=== PATIENT | male | born 1940 | race Caucasian/White ===

== ENCOUNTER 2017-03-06 16:41 | Inpatient (IN) | payer MEDICARE, BC ==
[2017-03-06] MEDS ORDERED: Ketorolac Tromethamine 30 MG/ML VIAL ONE (18:01)
--- NOTE | 2017-03-06 18:47 | HP ---
DATE OF ADMISSION: 03/06/2017 REQUESTING PHYSICIAN: Josh Jaime M.D. ATTENDING SURGEON: Nasir Monteiro M.D. CONSULTATIONS: None. HISTORY OF PRESENT ILLNESS: The patient is a 76-year-old man who last night had several d rinks of scotch over the evening while watching a baseball game and became intoxicated. Reports tri pping and falling and striking the right side of his chest on a coffee table and the patient was abl e to get back up into his recliner where he slept for the rest of night. This morning, he woke up w ith significant right-sided chest pain and took himself to the Emergency Department in [facility] he underwent evaluation and examination and was noted to have multiple right-sided rib fractures and right clavicle fracture. They sent the patient here for evaluation for admission and trauma ev aluation. ALLERGIES: None. CURRENT MEDICATIONS: Janumet, glipizide, Flomax, simvastatin, and lisinopril. PAST MEDICAL HISTORY: Diabetes, BPH, hypertension, and hyperlipidemia. PAST SURGICAL HISTORY: The patient had surgery to his left ankle and left knee. FAMILY MEDICAL HISTORY: Diabetes and hypertension. SOCIAL HISTORY: The patient lives at home alone. Denies drug or tobacco use and reports drinking a glass of scotch every night. PHYSICAL EXAMINATION: VITAL SIGNS: Blood pressure 161/102, heart rate 81, respirations 18, temperature is 100, oxygen sat uration is 95% on room air. GENERAL: The patient is resting comfortably in bed. He is alert and oriented x3. Ketan coma sca le is 15. HEENT: Head is normocephalic, atraumatic. Eyes: Extraocular motion intact. PERRLA bilaterally. Ears are atraumatic without discharge. Nose is atraumatic without discharge. Oropharynx is clear. NECK: Nontender. Trachea is midline. No JVD. CHEST: Clear to auscultation with moderate inspiratory and expiratory effort. Patient reports sign ificant pain in his right chest wall. HEART: Reveals regular rate and rhythm. ABDOMEN: Soft, flat, and nontender with active bowel sounds. Pelvis is stable. EXTREMITIES: Show full active range of motion. He has tenderness to palpation to the right clavicl e and a small contusion and deformity noted. The extremities are neurovascularly intact x4. BACK: Nontender and atraumatic. LABORATORY DATA AND IMAGING: Patient reportedly had lab work done in [place], but they cannot ob tain it, but by ER report, there was nothing significant other than \\\\"high glucose.\\\\" Radiographs again there are reports of the chest, abdomen, and pelvis that show right ribs 3 through 7, had a minimally displaced fracture of the right clavicle. ASSESSMENT AND PLAN: 1. Status post ground level fall. 2. Multiple right-sided rib fractures. 3. Right clavicle fracture. 4. Hyperglycemia. Plan was to admit patient to the surgical floor. We will repeat his labs and chest x-ray in the [facility]. IV fluid hydration, pain control via the oral pathway of the rib fracture protocol, pulmonary toilet, gastritis and mechanical DVT prophylaxis. Evaluation, examination, radiographic and labora tory findings were all discussed with Dr. Monteiro. At time of dictation, he will evaluate the patien t once he arrives up on the floor.
[2017-03-06] MEDS ORDERED: Ondansetron HCl/PF 4 MG/2 ML Vial IVP PRN (20:28)
[2017-03-06] MEDS ORDERED: hydrALAZINE 20 MG/ML VIAL SLOW IVP PRN (20:28)
[2017-03-06] MEDS ORDERED: Insulin Regular 300 UNITS/3 ML VIAL SC PRN (20:28)
[2017-03-06] MEDS ORDERED: Dextrose 5% in Water 1,000 ML IV PRN (20:28)
[2017-03-06] MEDS ORDERED: Dextrose 50% Abboject 50 ML SYRINGE SLOW IVP PRN (20:28)
[2017-03-06] MEDS ORDERED: Rib Fracture Protocol PO SCH (20:28)
[2017-03-06] MEDS ORDERED: Ondansetron ODT 4 MG TAB PO PRN (20:28)
[2017-03-06 20:32] VITALS: BMI 22.6
[2017-03-06] MEDS ORDERED: Cyclobenzaprine 10 MG TAB PO PRN (20:45)
[2017-03-06] MEDS: Sodium Chloride 0.9% 1,000 ML IV SCH (22:03)
[2017-03-06] MEDS: Famotidine 20 MG TAB PO SCH (22:04)
[2017-03-06] MEDS: Gabapentin 100 MG CAP PO SCH (22:04)
[2017-03-06] MEDS: Ibuprofen 600 MG TAB PO SCH (23:40)
[2017-03-06] MEDS: Acetaminophen 500 MG TAB PO SCH (23:40)
[2017-03-06] MEDS: traMADol HCl 50 MG TAB PO SCH (23:41)
[2017-03-07 05:23] LABS: #Eosinphils 0.1 thou/uL (0.0-0.7); #Lymphocytes 1.4 thou/uL (1.20-3.40); #Monocytes 0.7 thou/uL (0.11-0.59); #Neutrophils 4.2 thou/uL (1.40-6.50); %Basophils 0.4 % (0.0-1.0); %Eosinophils 1.3 % (0.0-10.0); %Lymphocytes 21.7 % (21.0-51.0); %Monocytes 11.5 % (0.0-10.0); Hematocrit 45.2 % (42.0-52.0); Mean Platelet Volume 8.7 fL (7.4-10.4); Red Blood Cell (RBC) Count 4.96 mill/uL (4.70-6.10); White Blood Cell (WBC) Count 6.5 thou/uL (4.8-10.8)
[2017-03-07 05:54] LABS: Anion Gap 9 mmol/L (10-20); BUN (Urea Nitrogen) 14 mg/dL (8.4-25.7); Calc. Creatinine Clearance 86 mL/min (70-130); Carbon Dioxide 25 mmol/L (23-31); Chloride 108 mmol/L (98-107); Estimated GFR-MDRD Greater than 90
[2017-03-07] MEDS: Ibuprofen 600 MG TAB PO SCH ×2 (06:17→12:07)
[2017-03-07] MEDS: traMADol HCl 50 MG TAB PO SCH ×2 (06:17→12:09)
[2017-03-07] MEDS: Acetaminophen 500 MG TAB PO SCH ×2 (06:17→12:07)
--- NOTE | 2017-03-07 07:58 | RAD ---
RIGHT CLAVICLE 2 VIEWS: Date: 03/07/17 HISTORY: Right clavicle fracture. FINDINGS/IMPRESSION: There is a fracture involving the shaft of the right clavicle with 4.0 cm overlapping of the fractur e fragments. A smaller fracture fragment is seen medial to the major distal fracture fragment. POS: [facility]
--- NOTE | 2017-03-07 08:42 | RAD ---
PORTABLE CHEST 1 VIEW: Date: 03/07/17 Time: 0726 hours HISTORY: Rib fractures, follow-up. FINDINGS/IMPRESSION: Comparison made with exam of 03/21/12. The heart size is normal. There is continued elevation of the right hemidiaphragm. There is blunting of the right costophrenic angle on the current exam suggestive of a small effusion. No lobar consol idation or pneumothoraces seen. There is a fracture involving the right clavicle. POS: [facility]
[2017-03-07] MEDS: Famotidine 20 MG TAB PO SCH (08:45)
[2017-03-07] MEDS: Gabapentin 100 MG CAP PO SCH (08:45)
--- OUTSIDE RECORDS SUMMARY | 2017-03-07 08:55 | XMS | Continuity of Care Document ---
:1940 Author Organization [facility] Care Team Providers Name Role Phone LISA SCHROEDER Primary Care Physician Insurance Providers Payer Name Policy Number Subscriber Name Relationship MEDICARE [id number] NATHAN GARCIA SELF/SAME PATIENT [facility] [id number] NATHAN GARCIA SELF/SAME PATIENT Advance Directives Directive Response Recorded Date/Time Advance Directive? N 03/06/17 8:56am Living Will? N 03/06/17 8:56am Health Care Proxy? N 03/06/17 8:56am Healthcare Power of Pneumatic Systems Operator? N 03/06/17 8:56am Is the patient an Organ Donor? N 03/06/17 8:56am Chief Complaint and Reason for Visit Reason for Visit FALL Problems No problem information available. Medications Current Home Medications Medication Dose Units Route Directions Days/Qty Instructions Start Date Glipizide 10 MG Oral TWO TABS (GLUCOTROL 10 MG TAB) 10 MG TAB Hydrocodone-Acetami 1 TAB Oral EVERY SIX HOURS 20 04/25/13 nophen (Racine) 10 MG/325 MG TAB Simvastatin 40 MG 40 MG Oral TAB Sitagliptin 50 MG Oral Phosphate (JANUVIA 50 MG TAB) 50 MG TAB Social History Problem Response Recorded Date Recreational drugs? N 03/06/17 Alcohol? Y 03/06/17 Query Response Start Date Stop Date Smoking Status: Never Smoker Hospital Discharge Instructions No hospital discharge instructions. Plan of Care Discharge Date 03/06/17 Disposition OTHER ACUTE CARE FACILITY Prescriptions See Medications Section Functional Status No functional status results. Allergies, Adverse Reactions, Alerts No known allergies. Immunizations No Known History of Immunizations. Vital Signs Vital Reading Collection Date/Time Result Blood Pressure 03/06/17 3:52pm 158/90 Blood Pressure Source 03/06/17 3:27pm Auto Cuff Temperature 03/06/17 3:52pm 98 F Temperature Source 03/06/17 3:27pm Oral Pulse Rate 03/06/17 3:52pm 90 Pulse Location 03/06/17 3:27pm Monitor Bedside Pulse Oximetry 03/06/17 3:52pm 93 Height 03/06/17 8:34am 5 ft 10 in Height 03/06/17 8:34am 177.8 cm Weight 03/06/17 8:34am 160 lb Weight 03/06/17 8:34am 72.575 kg Body Mass Index 03/06/17 8:34am 23.0 kg/m2 Results Laboratory Results Test Name Result Units Flags Reference Collection Result Comments Date/Time Date/Time White Blood Count 8.9 K/uL 4.8-10.8 03/06/17 03/06/17 1:50pm 2:15pm Red Blood Count 5.60 M/uL 4.70-6.00 03/06/17 03/06/17 1:50pm 2:15pm Hemoglobin 16.9 g/dL 13.5-17.5 03/06/17 03/06/17 1:50pm 2:15pm Hematocrit 48.2 % 42.0-52.0 03/06/17 03/06/17 1:50pm 2:15pm Mean Corpuscular 85.9 fl 80.0-100.0 03/06/17 03/06/17 Volume 1:50pm 2:15pm Mean Corpuscular 30.2 pg 27.0-31.0 03/06/17 03/06/17 Hemoglobin 1:50pm 2:15pm Mean Corpuscular 35.2 g/dL 32.0-36.0 03/06/17 03/06/17 Hgb Concent Diff 1:50pm 2:15pm Red Cell 13.5 % 11.5-14.5 03/06/17 03/06/17 Distribution Width 1:50pm 2:15pm Platelet Count 162 K/uL 130-400 03/06/17 03/06/17 1:50pm 2:15pm Mean Platelet 9.3 fl 03/06/17 03/06/17 Volume 1:50pm 2:15pm Granulocytes (%) 76.9 % H 50.0-75.0 03/06/17 03/06/17 1:50pm 2:15pm Lymphocytes % 12.3 % L 20.0-40.0 03/06/17 03/06/17 1:50pm 2:15pm Monocytes % 10.4 % 0.0-15.0 03/06/17 03/06/17 1:50pm 2:15pm Eosinophils % 0.1 % 0.0-10.0 03/06/17 03/06/17 1:50pm 2:15pm Basophils % 0.3 % 0.0-2.0 03/06/17 03/06/17 1:50pm 2:15pm Granulocytes # 6.8 K/uL H 1.8-6.4 03/06/17 03/06/17 1:50pm 2:15pm Lymphocytes # 1.1 K/uL L 1.2-3.6 03/06/17 03/06/17 1:50pm 2:15pm Monocytes # 0.9 K/uL 0.3-0.9 03/06/17 03/06/17 1:50pm 2:15pm Eosinophils # 0.0 K/ul 0.0-0.5 03/06/17 03/06/17 1:50pm 2:15pm Basophils # 0.0 K/uL 0.0-0.2 03/06/17 03/06/17 1:50pm 2:15pm Manual NO 03/06/17 03/06/17 Differential 1:50pm 2:15pm Sodium Level 136 mmol/L 135-144 03/06/17 03/06/17 1:50pm 2:27pm Potassium Level 4.1 mmol/L 3.5-5.1 03/06/17 03/06/17 1:50pm 2:27pm Chloride Level 103 mmol/L 101-111 03/06/17 03/06/17 1:50pm 2:27pm Carbon Dioxide 24 mmol/L 22-32 03/06/17 03/06/17 Level 1:50pm 2:27pm Anion Gap 13.1 mmol/L 10-03/06/17 03/06/17 1:50pm 2:27pm Glucose Level 141 mg/dL H 70-109 03/06/17 03/06/17 Random glucose > 200 mg/dL in a patient with typical 1:50pm 2:27pm symptoms of diabetes (polydipsia, polyuria and unexplained weight loss) satisfies ADA criteria for diabetes mellitus if confirmed by repeat testing on another day. Confirmation is unnecessary when acute metabolic decompensation with hyperglycemia is manifested. Reference: Report of the Expert Committee on the Diagnosis and Classification of Diabetes Mellitus. Diabetes Care, 20:1183, 1997. Blood Urea 15 mg/dL 8-03/06/17 03/06/17 Nitrogen 1:50pm 2:27pm Creatinine 0.80 mg/dL 0.61-1.24 03/06/17 03/06/17 1:50pm 2:27pm EGFR Note 105.1 59.3-175.8 03/06/17 03/06/17 eGFR (Estimated Glomerular Filtration Rate) 1:50pm 2:27pm eGFR calculation value obtained using the [facility] Quadratic (MCQ) equation. The reportable reference range is recommended to be greater than 60 ml/min/1.73m. This is an estimation of the patient's GFR and clinical correlation is recommended. This eGFR calculation does not account for race. This result may differ from other equations available. Calcium Level 9.7 mg/dL 8.9-10.3 03/06/17 03/06/17 1:50pm 2:27pm Albumin 4.6 g/dL 3.5-5.0 03/06/17 03/06/17 1:50pm 2:27pm Total Bilirubin 1.2 mg/dL 0.3-1.2 03/06/17 03/06/17 1:50pm 2:27pm Alkaline 35 IU/L 32-91 03/06/17 03/06/17 Phosphatase 1:50pm 2:27pm Total Protein 7.8 g/dL 6.5-8.1 03/06/17 03/06/17 1:50pm 2:27pm Alanine 34 IU/L 7-55 03/06/17 03/06/17 Aminotransferase 1:50pm 2:27pm (ALT/SGPT) Aspartate Amino 29 IU/L 15-41 03/06/17 03/06/17 Transf (AST/SGOT) 1:50pm 2:27pm Globulin 3.2 g/dL 2.3-3.5 03/06/17 03/06/17 1:50pm 2:27pm Albumin/Globulin 1.4 1.2-2.2 03/06/17 03/06/17 Ratio 1:50pm 2:27pm Direct Bilirubin < 0.2 mg/dL 0.1-0.5 12/20/16 12/20/16 5:10pm 5:40pm Amylase Level 93 U/L 36-128 12/20/16 12/20/16 5:10pm 5:40pm Lipase 33 U/L 22-51 12/20/16 12/20/16 5:10pm 5:40pm Gamma Glutamyl 32 U/L 7-50 12/20/16 12/20/16 Transpeptidase 5:10pm 5:40pm Carcinoembryonic 2.8 ng/mL 0.0-4.7 12/20/16 12/24/16 Jack ECLIA methodology Nonsmokers <3.9 Antigen 5:10pm 8:41am Smokers <5.6 CA 19-9 Antigen 13 U/mL 0-35 12/20/16 12/24/16 Jack ECLIA methodology 5:10pm 8:41am Performed at: [address] [id number] Regional Environmental Manager: Arian Lawler MD, Phone: [phone] Procedures No Known History of Procedures. Encounters Encounter Location Arrival/Admit Date Discharge/Depart Date Attending Provider Departed [place] 03/06/17 8:34am 03/06/17 3:40pm D'SHARMILA, Emergency [facility] Registered [place] 12/20/16 4:49pm [facility]
[2017-03-07] MEDS: Sodium Chloride 0.9% 1,000 ML IV SCH (09:08)
[2017-03-07] MEDS ORDERED: HumaLOG 300 UNITS/3 ML VIAL SC PRN (10:38)
[2017-03-07] MEDS ORDERED: Dextrose 5% in Water 1,000 ML IV PRN (10:38)
[2017-03-07] MEDS ORDERED: Dextrose 50% Abboject 50 ML SYRINGE SLOW IVP PRN (10:38)
--- NOTE | 2017-03-07 11:21 | CON ---
DATE OF CONSULTATION: 03/07/2017 REQUESTING PHYSICIAN: Dr. Jacek Finley HISTORY OF PRESENT ILLNESS: The patient is a pleasant 76-year-old gentleman who last evening was ce lebrating the [employer] baseball win when he had several alcoholic beverages and tripped and f ell landing on his right side. He reports immediate right-sided chest pain as well as pain at the c lavicle. He was seen and evaluated in the emergency department in [place] and then subsequently transferred to [place] for evaluation and care. Workup included x-rays of the chest and shoulder with evidence of right-sided rib fractures and a right minimally displaced clavicle fracture. As [facility], orthopedic consultation requested. PAST MEDICAL HISTORY: Remarkable for diabetes, benign prostatic hypertrophy, and hypertension. PAST SURGICAL HISTORY: Includes orthopedic procedures to the left knee and left ankle. MEDICATIONS: Glipizide, Flomax, simvastatin, lisinopril and Janumet. ALLERGIES: None known. FAMILY HISTORY: Noncontributory. SOCIAL HISTORY: He denies tobacco use. He does drink alcohol nightly. REVIEW OF SYSTEMS: Denies recent fevers, chills or sweats. Denies chest pain prior to this fall. He denies numbness or tingling in the upper extremities. PHYSICAL EXAMINATION: VITAL SIGNS: Temperature 97.9, heart rate 54, respiratory rate of 14, and blood pressure 153/85. HEENT: Atraumatic, normocephalic. HEART: Shows a regular rate and rhythm. LUNGS: Remarkable for unlabored breathing. CHEST: Chest wall remarkable for anterior and lateral right-sided chest wall pain consistent with h is history of rib fractures. ABDOMEN: Benign. EXTREMITIES: Remarkable for bilateral lower extremities with no complaints of pain or numbness. A left upper extremity also with no complaints of pain in his shoulder, elbow, wrist or hand. He has intact subjective sensation. The right upper extremity is remarkable for pain and some swelling ove rlying the clavicle. Palpation of the clavicle reveals a minor step off at the mid shaft with some crepitation with deep palpation. The shoulder joint proper appears atraumatic as does the elbow, wr ist and hand. He has intact sensation in the radial, median, and ulnar distributions. He has 2+ ra dial pulse. X-RAYS: Today, shoulder x-ray was obtained and is remarkable for a clavicle fracture that is long a nd oblique and with minimal displacement. ASSESSMENT: A 76-year-old gentleman status post ground level fall sustaining a right clavicle fract ure. PLAN: I discussed with the patient that given the alignment of this fracture and the fact there is no skin at risk, I believe that we can proceed with nonsurgical management. We have discussed the p otential merits of benign neglect versus sling versus [id number]. At this time, patient will u se a sling for comfort. I would like to see him back in my office in 4 weeks for reevaluation and f ollow up x-ray. In the meantime, I have asked that he avoid overhead activities while the clavicle is healing.
[2017-03-07 11:42] VITALS: BP 114/78; TEMP 97.7
--- NOTE | 2017-03-07 14:25 | DIS ---
DATE OF ADMISSION: 03/06/2017 DATE OF DISCHARGE: 03/07/2017 BRIEF ADMISSION HISTORY AND PHYSICAL EXAMINATION: A 76-year-old male who last night had several drinks of scotch over the evening while watching a baseball game and became intoxicated, falling and striking his right side of his chest on a coffee table. Patient was able to get back up into recliner, but unable to rest the rest of night. This prompting him to come to the ER earlier that morning. He underwent evaluation in [place] and transferred here for right-sided rib fractures and a right clavicle fracture repair. HOSPITAL COURSE: The patient was admitted to the surgical floor. His pain control was optimized. He was doing well on incentive spirometer this a.m. about approximately at 2000. Dr. Finley was at the bedside at that time, he was cleared for discharge home by Dr. Finley as well as the rest of the trauma team and orthopedic team as well. Follow up appointments will be 2 weeks follow up with either us or with his PCP, Dr. Calderon with a repeat chest x-ray to evaluate his rib fractures as well as 4 weeks follow up with Dr. Thapa for the clavicle fracture. Discharge instructions to remain in a sling for comfort. DISCHARGE MEDICATIONS: Flexeril 5 mg p.o. t.i.d. p.r.n. muscle spasms, dispensed #30; Ultram 50 mg 1-2 tabs q.6 hours p.r.n. pain, dispensed #30, one refill; and gabapentin 100 mg p.o. t.i.d., dispensed 60. The patient was also instructed to continue to work with incentive spirometer and deep coughing exercises while he was at home to prevent any pulmonary disease. The patient understood and all questions were answered for the time of evaluation this a.m. FINAL DIAGNOSES: 1. Status post ground level fall. 2. Multiple right-sided rib fractures. 3. Right clavicle fracture. 4. Hyperglycemia. 5. History of diabetes. This is merely a trauma discharge summary, please refer to the chart for further information. DISCHARGE DISPOSITION: Home. DISCHARGE CONDITION: Good. Please forward this discharge summary to Dr. Shamar Ocasio of [place] the patient's PCP. Thank you PARVEZ
[2017-03-07] MEDS ORDERED: Alogliptin Benzoate 25 MG TABLET PO SCH (17:00)
[2017-03-07] MEDS ORDERED: Simvastatin 5 MG TAB PO SCH (21:00)
[2017-03-07] MEDS ORDERED: Tamsulosin HCl 0.4 MG CAP PO SCH (21:00)
[2017-03-07] MEDS ORDERED: Lisinopril 10 MG TAB PO SCH (21:00)
[2017-03-08] MEDS ORDERED: Multivit, Therapeutic 1 TAB PO SCH (09:00)
[2017-03-08] MEDS ORDERED: Calcium Carbonate 600 MG TAB PO SCH (09:00)
== END 2017-03-07 13:36 | disposition home or self-care (01) | DRG 563 ==
LOC: ERS 16:41 → SURG A 17:13
PROVIDERS: ADMIT Specialist; ATTEND Specialist
DX: S42.001A Fracture of unspecified part of right clavicle, initial encounter for closed fracture (principal); S22.41XA Multiple fractures of ribs, right side, initial encounter for closed fracture; E11.65 Type 2 diabetes mellitus with hyperglycemia; I10 Essential (primary) hypertension; E78.5 Hyperlipidemia, unspecified; W19.XXXA Unspecified fall, initial encounter; Y92.009 Unspecified place in unspecified non-institutional (private) residence as the place of occurrence of the external cause
CPT/HCPCS: 36415; 36416; 71010; 80048; 85025; 94640; 96361; 96374; G0390; G8978-GP-CL; G8979-GP-CJ; J1885; J7620